=== PATIENT | male | born 1970 ===

== ENCOUNTER 2018-01-16 08:46 | Emergency (ER) | payer OTHER ==
[2018-01-16] MEDS ORDERED: Albuterol 0.083% Inhal Sol (2.5 mg/3 mL) UD IH STA (09:40)
--- NOTE | 2018-01-16 09:52 | RAD ---
HISTORY: COMPARISON: No prior. TECHNIQUE: Chest PA and lateral FINDINGS: LINES AND TUBES: None. LUNG AND PLEURA: The lungs are well inflated. There is peribronchial thickening in the lower lobes with tubular opacities. HEART AND MEDIASTINUM: The heart is not enlarged. The hilar and mediastinal contours are within normal limits. SKELETAL STRUCTURES: The bony structures are within normal limits for the patient's age. VISUALIZED UPPER ABDOMEN: Normal. OTHER FINDINGS: None. IMPRESSION: Bilateral lower lobe peribronchial thickening. Tubular opacities may represent subsegmental atelectasis or mucus plugging. Findings could be related to reactive small airway disease/ atypical or viral pneumonitis. No lobar pneumonia.
[2018-01-16] MEDS ORDERED: Albuterol 0.083% Inhal Sol (2.5 mg/3 mL) UD ONE (09:53)
--- NOTE | 2018-01-16 10:54 | C.PDOC ---
History Of Present Illness 47-year-old male, presents to the emergency deppartment with complaints of cough , runny nose, pleuritic pain and congestion x5 days. Patient reports intermittent subjective fevers. Patient denies nausea/vomiting, rashes, recent travel, sick contacts. Time Seen by Provider: 01/16/18 09:05 Chief Complaint (Nursing): Cough, Cold, Congestion History Per: Patient History/Exam Limitations: no limitations Onset/Duration Of Symptoms: Days Current Symptoms Are (Timing): Still Present Past Medical History Reviewed: Historical Data, Nursing Documentation, Vital Signs Vital Signs: Last Vital Signs Temp 98.6 F 01/16/18 11:05 Pulse 75 01/16/18 11:05 Resp 18 01/16/18 11:05 BP 120/70 01/16/18 11:05 Pulse Ox 98 01/16/18 11:05 - Medical History PMH: Back Problems Denies: Chronic Kidney Disease Surgical History: Appendectomy - [facility] Procedures REPAIR ABDOMINAL WALL, PERCUTANEOUS ENDOSCOPIC APPROACH (04/30/16) RESECTION OF APPENDIX, PERCUTANEOUS ENDOSCOPIC APPROACH (04/30/16) Family History: States: No Known Family Hx - Social History Hx Alcohol Use: No Hx Substance Use: No - Immunization History Hx Influenza Vaccination: No Review Of Systems Constitutional: Negative for: Fever, Chills ENT: Positive for: Nose Congestion Respiratory: Positive for: Cough, Pleuritic Pain. Negative for: Shortness of Breath, Sputum Gastrointestinal: Negative for: Vomiting Skin: Negative for: Rash Neurological: Negative for: Headache, Dizziness Physical Exam - Physical Exam Appears: Well, Non-toxic, No Acute Distress Skin: Normal Color, Warm, Dry, No Rash Head: Normacephalic Eye(s): bilateral: PERRL Nose: Normal, No Flaring, No Discharge Oral Mucosa: Moist Lips: Normal Appearing Throat: No Erythema, No Exudate Neck: Normal ROM, Trachea Midline, Supple Chest: Symmetrical Cardiovascular: Rhythm Regular, No Murmur Respiratory: No Accessory Muscle Use, No Rales, No Rhonchi, Wheezing ( expiratory B/L ) Extremity: Normal ROM, No Deformity, No Swelling Neurological/Psych: Oriented x3, Normal Speech ED Course And Treatment O2 Sat by Pulse Oximetry: 96 (RA) Pulse Ox Interpretation: Normal - Radiology CXR: Interpreted by Me, Viewed By Me CXR Interpretation: Yes: No Acute Disease. No: Infiltrates Progress Note: EKG, Chest XR ordered and reviewed. Patient treated with Duoneb. On re-evaluation, Patient is resting comfortably, and is in no acute distress. No wheezing, lungs CTA. Patient was instructed to follow up with *physician/ clinic* in 1-2 days for further evaluation. Disposition Counseled Patient/Family Regarding: Diagnosis, Need For Followup, Rx Given - Disposition Referrals: [facility] [Outside] Disposition: HOME/ ROUTINE Disposition Time: 10:55 Condition: STABLE Additional Instructions: FOLLOW UP WITH YOUR DOCTOR/CLINIC IN 1-2 DAYS USE MEDICATIONS DIRECTED RETURN TO EMERGENCY ROOM IF SYMPTOMS WORSEN SEGUIMIENTO CON BALL MDICO / CLNICA EN 1-2 TUTTLE USE MEDICAMENTOS SEGN LO INDICADO REGRESE AL PHIL DE EMERGENCIA SI LOS SNTOMAS EMPEORAN Prescriptions: Albuterol HFA [Ventolin HFA 90 mcg/actuation (8 g)] 0.09 mg IH Q4 PRN #1 puff PRN Reason: Wheezing Benzonatate [Tessalon Perles] 100 mg PO BID PRN #15 sgl PRN Reason: Cough predniSONE [predniSONE Tab] 40 mg PO DAILY #6 tab Instructions: Acute Bronchitis, Adult (DC), Viral Upper Respiratory Infection, Adult (DC) Forms: [employer] ([employer]) Print Language: PALAUAN - Clinical Impression Clinical Impression: Viral disease, Upper respiratory infection, Bronchospasm - Scribe Statement The provider has reviewed the documentation as recorded by the Scribe (Lionel Mckeon) All medical record entries made by the Scribe were at my direction and personally dictated by me. I have reviewed the chart and agree that the record accurately reflects my personal performance of the history, physical exam, medical decision making, and the department course for this patient. I have also personally directed, reviewed, and agree with the discharge instructions and disposition.
[2018-01-16 11:33] VITALS: BP 120/70; PULSE 75; RESP 18; TEMP 98.6
[2018-01-16 16:24] VITALS: O2SAT 96
--- NOTE | 2018-01-18 17:01 | CARD ---
APPROVED REPORT EKG Measurement Heart [id number] <Conclusion> Normal sinus rhythm Normal ECG
== END 2018-01-16 11:05 | disposition home or self-care (01) ==
LOC: C.ER 08:46
DX: J06.9 Acute upper respiratory infection, unspecified (principal); B34.9 Viral infection, unspecified; J98.01 Acute bronchospasm